=== PATIENT | male | born 1935 | race Caucasian/White ===

== ENCOUNTER 2018-03-25 17:18 | Observation (INO) | payer MEDICARE, OTHER ==
[2018-03-25 17:35] LABS: PARTIAL THROMBOPLASTIN TIME 26.7 SEC (23.5-35.8)
[2018-03-25 17:37] LABS: PROTHROMBIN TIME 14.8 SEC (11.4-15.4)
[2018-03-25 17:39] LABS: ABSOLUTE LYMPHOCYTES (AUTO) 0.6 10^3/uL (0.5-4.7); ABSOLUTE NEUT (AUTO) 0.1 10^3/uL (1.7-8.2); EOSINOPHILS % (AUTO) 1.6 % (0-6); LYMPHOCYTES % (AUTO) 82.2 % (13-45); MEAN CORPUSCULAR HEMOGLOBIN 40.7 pg (27.0-33.4); MEAN CORPUSCULAR HGB CONC 34.7 g/dL (32.0-36.0); MONOCYTES % (AUTO) 1.6 % (3-13); RED BLOOD COUNT 1.96 10^6/uL (4.35-5.55); RED CELL DISTRIBUTION WIDTH 17.3 % (11.5-14.0); SEGMENTED NEUTROPHILS % (AUTO) 14.6 % (42-78); TOTAL CELLS COUNTED % (AUTO) 100 %
[2018-03-25 17:40] LABS: MEAN CORPUSCULAR VOLUME 117 fl (80-97); PLATELET COUNT 77 10^3/uL (150-450)
--- NOTE | 2018-03-25 17:40 | RADIOLOGY REPORT (SQ) ---
EXAM DESCRIPTION: CHEST SINGLE VIEW COMPLETED DATE/TIME: 03/25/2018 5:27 pm REASON FOR STUDY: aphasia resolved COMPARISON: 02/16/2018 EXAM PARAMETERS: NUMBER OF VIEWS: One view. TECHNIQUE: Single frontal radiographic view of the chest acquired. RADIATION DOSE: NA LIMITATIONS: None. FINDINGS: LUNGS AND PLEURA: Stable scarring left lung base. No new airspace opacities, masses or pn eumothorax. No pleural effusion. MEDIASTINUM AND HILAR STRUCTURES: No masses. Contour normal. HEART AND VASCULAR STRUCTURES: Heart stable in size. Normal vasculature. BONES: No acute findings. HARDWARE: None in the chest. OTHER: No other significant finding. IMPRESSION: NO ACUTE RADIOGRAPHIC FINDING IN THE CHEST. NO SIGNIFICANT CHANGE FROM PRIOR STUDY. TECHNICAL DOCUMENTATION: JOB ID: [id number] [employer]- All Rights Reserved Reading location - IP/workstation name: [email or web address]
--- NOTE | 2018-03-25 17:42 | RADIOLOGY REPORT (SQ) ---
EXAM DESCRIPTION: CT HEAD WITHOUT COMPLETED DATE/TIME: 03/25/2018 5:31 pm REASON FOR STUDY: aphasia resolved COMPARISON: None. TECHNIQUE: Axial images acquired through the brain without intravenous contrast. Images reviewed wi th bone, brain and subdural windows. Images stored on PACS. All CT scanners at this facility use dose modulation, iterative reconstruction, and/or weight based d osing when appropriate to reduce radiation dose to as low as reasonably achievable (ALARA). [facility]: Dose Right [facility]: CareDose [facility]: Dose Right [facility]: Teradose 4D [facility]: Smart [employer] RADIATION DOSE: mGy. LIMITATIONS: None. FINDINGS: VENTRICLES: Prominent. CEREBRUM: No masses. No hemorrhage. No midline shift. Areas of low density in the white matter mos t likely due to chronic micro-vascular ischemic change. No evidence for acute infarction. CEREBELLUM: No masses. No hemorrhage. No alteration of density. No evidence for acute infarction. EXTRAAXIAL SPACES: Age-related involutional change. No fluid collections. No masses. ORBITS AND GLOBE: No intra- or extraconal masses. Normal contour of globe without masses. CALVARIUM: No fracture. PARANASAL SINUSES: No fluid or mucosal thickening. SOFT TISSUES: No mass or hematoma. OTHER: No other significant finding. IMPRESSION: CHRONIC CHANGES OF ATROPHY AND MICROVASCULAR ISCHEMIA. NO ACUTE PROCESS. EVIDENCE OF ACUTE STROKE: NO. COMMENT: Pertinent positive or negative findings of the imaging study reported as a CRITICAL EXAM higinio MELTON EBONIE at17:36 on 03/25/2018. Category of Critical Exam: CODE STROKE TECHNICAL DOCUMENTATION: JOB ID: [id number] Quality ID # [id number]: Final reports with documentation of one or more dose reduction techniques (e.g., Au tomated exposure control, adjustment of the mA and/or kV according to patient size, use of iterative reconstruction technique) 2010 [employer]- All Rights Reserved Reading location - IP/workstation name: [email or web address]
[2018-03-25 17:45] LABS: WHITE BLOOD COUNT 0.8 10^3/uL (4.0-10.5)
[2018-03-25 17:53] LABS: ALANINE AMINOTRANSFERASE 24 U/L (21-72); ALBUMIN 3.9 g/dL (3.5-5.0); ALKALINE PHOSPHATASE 60 U/L (38-126); ANION GAP 15 (5-19); ASPARTATE AMINO TRANSFERASE 15 U/L (17-59); BILIRUBIN,DIRECT 0.1 mg/dL (0.0-0.4); BILIRUBIN,TOTAL 0.4 mg/dL (0.2-1.3); BLOOD UREA NITROGEN 21 mg/dL (7-20); CALCIUM 9.3 mg/dL (8.4-10.2); CARBON DIOXIDE 25 mmol/L (22-30); CHLORIDE 104 mmol/L (98-107); CREATINE KINASE 33 U/L (55-170); GLUCOSE 118 mg/dL (75-110); POTASSIUM 4.1 mmol/L (3.6-5.0); SODIUM 143.5 mmol/L (137-145); TOTAL PROTEIN 6.6 g/dL (6.3-8.2)
[2018-03-25 18:04] LABS: CREATINE KINASE MB 0.58 ng/mL (<4.55)
[2018-03-25 18:07] LABS: ANISOCYTOSIS 1+; OVALOCYTES SLIGHT; PLATELET COMMENT DECREASED; POIKILOCYTOSIS SLIGHT
[2018-03-25 18:09] LABS: TROPONIN I 0.066 ng/mL
[2018-03-25] MEDS ORDERED: ASPIRIN 325 MG TABLET PO ONE (19:47)
--- NOTE | 2018-03-25 19:47 | ER Document Report ---
ED General - General Chief Complaint: S/S of Possible Stroke Stated Complaint: STROKE LIKE SYMPTOMS Time Seen by Provider: 03/25/18 17:24 Mode of Arrival: Medic Information source: Patient Notes: 82-year-old male presents with complaints of sudden aphasia while at home. Patient was having difficulty getting words out denies any chest pain shortness breath difficulty breathing Symptoms completely resolved prior to arrival denies any weakness numbness or confusion TRAVEL OUTSIDE OF THE [place] IN LAST 30 DAYS: No - HPI Onset: Just prior to arrival Onset/Duration: Sudden Quality of pain: No pain Severity: Mild Pain Level: Denies Associated symptoms: Other Exacerbated by: Denies Relieved by: Denies Similar symptoms previously: No Recently seen / treated by doctor: No - Related Data Allergies/Adverse Reactions: No Known Allergies Allergy (Unverified 04/18/12 09:04) Past Medical History - Social History Smoking Status: Never Smoker Cigarette use (# per day): No Chew tobacco use (# tins/day): No Smoking Education Provided: No Frequency of alcohol use: None Drug Abuse: None Family History: Reviewed & Not Pertinent Patient has suicidal ideation: No Patient has homicidal ideation: No - Past Medical History Cardiac Medical History: Denies: Hx Heart Attack, Hx Hypertension Pulmonary Medical History: Denies: Hx Asthma Neurological Medical History: Denies: Hx Cerebrovascular Accident, Hx Seizures Renal/ Medical History: Denies: Hx Peritoneal Dialysis GI Medical History: Denies: Hx Hepatitis, Hx Hiatal Hernia, Hx Ulcer Infectious Medical History: Denies: Hx Hepatitis Past Surgical History: Denies: Hx Open Heart Surgery, Hx Pacemaker Review of Systems - Review of Systems Notes: REVIEW OF SYSTEMS: CONSTITUTIONAL : Denies fever, chills, or sweats. Denies recent illness. EENT: Denies eye, ear, throat, or mouth pain or symptoms. Denies nasal or sinus congestion or discharge. Denies throat, tongue, or mouth swelling or difficulty swallowing. CARDIOVASCULAR: Denies chest pain. Denies palpitations or racing or irregular heart beat. Denies ankle edema. RESPIRATORY: Denies cough, cold, or chest congestion. Denies shortness of breath, difficulty breathing, or wheezing. GASTROINTESTINAL: Denies abdominal pain or distention. Denies nausea, vomiting , or diarrhea. Denies blood in vomitus, stools, or per rectum. Denies black, tarry stools. Denies constipation. GENITOURINARY: Denies difficulty urinating, painful urination, burning, frequency, blood in urine, or discharge. MUSCULOSKELETAL: Denies back or neck pain or stiffness. Denies joint pain or swelling. SKIN: Denies rash, lesions or sores. HEMATOLOGIC : Denies easy bruising or bleeding. LYMPHATIC: Denies swollen, enlarged glands. NEUROLOGICAL: Sudden episode of aphasia PSYCHIATRIC: Denies anxiety or stress. Denies depression, suicidal ideation, or homicidal ideation. ALL OTHER SYSTEMS REVIEWED AND NEGATIVE. Dictation was performed using [employer] voice recognition software PHYSICAL EXAMINATION: GENERAL: Well-appearing, well-nourished and in no acute distress. HEAD: Atraumatic, normocephalic. EYES: Pupils equal round and reactive to light, extraocular movements intact, sclera anicteric, conjunctiva are normal. ENT: Nares patent, oropharynx clear without exudates. Moist mucous membranes. NECK: Normal range of motion, supple without lymphadenopathy LUNGS: Breath sounds clear to auscultation bilaterally and equal. No wheezes rales or rhonchi. HEART: Regular rate and rhythm without murmurs ABDOMEN: Soft, nontender, nondistended abdomen. No guarding, no rebound. No masses appreciated. Musculoskeletal: Normal range of motion, no pitting or edema. No cyanosis. NEUROLOGICAL: Cranial nerves grossly intact. Normal speech, normal gait. Normal sensory, motor exams PSYCH: Normal mood, normal affect. SKIN: Warm, Dry, normal turgor, no rashes or lesions noted. Physical Exam - Vital signs Vitals: Pulse Resp BP Pulse Ox 61 18 165/76 H 100 03/25/18 17:24 03/25/18 17:24 03/25/18 17:24 03/25/18 17:24 Course - Re-evaluation Re-evalutation: 03/25/18 19:45 Patient has a history of myelodysplastic syndrome, currently asymptomatic CT of the head no no acute abnormality patient will be admitted for observation to rule out CVA appears to have had a TIA at this time not a candidate for thrombolytics - Vital Signs Vital signs: Temp Pulse Resp BP Pulse Ox 98.0 F 61 15 165/76 H 100 03/25/18 18:23 03/25/18 17:24 03/25/18 18:01 03/25/18 18:00 03/25/18 18:01 - Laboratory Result Diagrams: 03/25/18 17:12 03/25/18 17:12 Laboratory results interpreted by me: 03/25/18 03/25/18 17:12 17:12 WBC 0.8 L* RBC 1.96 L Hgb 8.0 L Hct 23.0 L MCV 117 H MCH 40.7 H RDW 17.3 H Plt Count 77 L Seg Neutrophils % 14.6 L Lymphocytes % 82.2 H Monocytes % 1.6 L Absolute Neutrophils 0.1 L Absolute Monocytes 0.0 L BUN 21 H Glucose 118 H AST 15 L Creatine Kinase 33 L - Diagnostic Test Radiology reviewed: Image reviewed - CT head noted no acute abnormality., Reports reviewed Discharge - Discharge Clinical Impression: Aphasia TIA (transient ischemic attack) Qualifiers: Transient cerebral ischemia type: unspecified Qualified Code(s): G45.9 - Transient cerebral ischemic attack, unspecified Condition: Stable Disposition: ADMITTED OBSERVATION Admitting Provider: Hospitalist Unit Admitted: IMCU
[2018-03-25] MEDS ORDERED: ACETAMINOPHEN 325 MG TABLET PO PRN (20:15)
--- NOTE | 2018-03-25 20:34 | PDOC H&P ---
History of Present Illness Admission Date/PCP: 03/25/18 19:58 History of Present Illness: ADAM PEREIRA is a 82 year old male patient brought by EMS for TIA. Patient has been in his usual baseline state feels up until this afternoon when he suddenly developed aphasia described as difficulty getting work this out and also incoherent speech. By the time patient arrives to ER all his symptoms spontaneously resolved. Patient denied any problems of dizziness, headache, blurring of vision, palpitation, nausea or vomiting. Patient has underlying myelodysplastic syndrome for which she has been getting intermittent injections of some kind. He has CT head which is negative for acute intracranial process. His blood work is remarkable for pancytopenia and severe leukopenia which explained by his MDS. Past Medical History Cardiac Medical History: Denies: Myocardial Infarction, Hypertension Pulmonary Medical History: Denies: Asthma Neurological Medical History: Denies: Seizures GI Medical History: Denies: Hepatitis, Hiatal Hernia Hematology: Reports: Neutropenia Denies: Anemia, Sickle Cell Disease Past Surgical History Past Surgical History: Denies: Pacemaker Social History Smoking Status: Never Smoker - Advance Directive Resuscitation Status: Full Code Family History Family History: Reviewed & Not Pertinent, Hypertension Parental Family History Reviewed: Yes Children Family History Reviewed: Yes Sibling(s) Family History Reviewed.: Yes Medication/Allergy Home Medications: Travoprost [Travatan Z] drop 03/25/18 Allergies/Adverse Reactions: No Known Allergies Allergy (Unverified 04/18/12 09:04) Review of Systems Constitutional: PRESENT: as per HPI Eyes: PRESENT: as per HPI Cardiovascular: PRESENT: as per HPI Respiratory: PRESENT: as per HPI Gastrointestinal: PRESENT: as per HPI Neurological: PRESENT: as per HPI Physical Exam Vital Signs: Temp Pulse Resp BP Pulse Ox 98.0 F 61 15 165/76 H 100 03/25/18 18:23 03/25/18 17:24 03/25/18 18:01 03/25/18 18:00 03/25/18 18:01 General appearance: PRESENT: no acute distress Head exam: PRESENT: atraumatic, normocephalic Respiratory exam: PRESENT: clear to auscultation lexx. ABSENT: rales, rhonchi, wheezes Cardiovascular exam: PRESENT: RRR. ABSENT: diastolic murmur, rubs, systolic murmur GI/Abdominal exam: PRESENT: normal bowel sounds, soft. ABSENT: distended, guarding, mass, organolmegaly, rebound, tenderness Neurological exam: PRESENT: alert, awake, oriented to time, oriented to situation, other - No neurologic deficits Results Impressions: Chest X-Ray 03/25/18 17:24 IMPRESSION: NO ACUTE RADIOGRAPHIC FINDING IN THE CHEST. NO SIGNIFICANT CHANGE FROM PRIOR STUDY. Head CT 03/25/18 17:24 IMPRESSION: CHRONIC CHANGES OF ATROPHY AND MICROVASCULAR ISCHEMIA. NO ACUTE PROCESS. EVIDENCE OF ACUTE STROKE: NO. Assessment & Plan - Diagnosis (1) TIA (transient ischemic attack) Qualifiers: Transient cerebral ischemia type: unspecified Qualified Code(s): G45.9 - Transient cerebral ischemic attack, unspecified Is this a current diagnosis for this admission?: Yes Plan: Patient admitted for observation for 24 hours. MRI of the brain in a.m. - Time Critical Time spent with patient: 15-24 minutes
[2018-03-25] MEDS ORDERED: ATORVASTATIN CALCIUM 40 MG TABLET PO SCH (22:00)
--- NOTE | 2018-03-25 22:40 | EKG REPORT ---
SEVERITY:- ABNORMAL ECG - SINUS RHYTHM FIRST DEGREE AV BLOCK LEFT ANTERIOR FASCICULAR BLOCK : Confirmed by: Joselito Watson 25-Mar-2018 19:39:50
[2018-03-26 05:59] LABS: ABSOLUTE LYMPHOCYTES (AUTO) 0.9 10^3/uL (0.5-4.7); ABSOLUTE NEUT (AUTO) 0.1 10^3/uL (1.7-8.2); EOSINOPHILS % (AUTO) 2.9 % (0-6); HEMATOCRIT 20.3 % (37.9-51.0); MEAN CORPUSCULAR HEMOGLOBIN 40.2 pg (27.0-33.4); MEAN CORPUSCULAR HGB CONC 34.4 g/dL (32.0-36.0); MEAN CORPUSCULAR VOLUME 117 fl (80-97); MONOCYTES % (AUTO) 1.3 % (3-13); RED BLOOD COUNT 1.73 10^6/uL (4.35-5.55); RED CELL DISTRIBUTION WIDTH 17.4 % (11.5-14.0); SEGMENTED NEUTROPHILS % (AUTO) 7.8 % (42-78); TOTAL CELLS COUNTED % (AUTO) 100 %
[2018-03-26 06:15] LABS: ALANINE AMINOTRANSFERASE 22 U/L (21-72); ALBUMIN 3.1 g/dL (3.5-5.0); ALKALINE PHOSPHATASE 51 U/L (38-126); ANION GAP 7 (5-19); ASPARTATE AMINO TRANSFERASE 12 U/L (17-59); BILIRUBIN,DIRECT 0.1 mg/dL (0.0-0.4); BILIRUBIN,TOTAL 0.2 mg/dL (0.2-1.3); BLOOD UREA NITROGEN 20 mg/dL (7-20); CALCIUM 8.8 mg/dL (8.4-10.2); CARBON DIOXIDE 27 mmol/L (22-30); CHLORIDE 107 mmol/L (98-107); GLUCOSE 99 mg/dL (75-110); POTASSIUM 4.2 mmol/L (3.6-5.0); SODIUM 140.6 mmol/L (137-145); TOTAL PROTEIN 5.5 g/dL (6.3-8.2)
[2018-03-26 06:17] LABS: PLATELET COUNT 67 10^3/uL (150-450)
[2018-03-26 06:24] LABS: ANISOCYTOSIS 1+; OVALOCYTES SLIGHT; PLATELET COMMENT DECREASED; POIKILOCYTOSIS SLIGHT; POLYCHROMASIA SLIGHT; SCHISTOCYTES SLIGHT; TEAR DROP CELLS SLIGHT
--- NOTE | 2018-03-26 08:31 | RADIOLOGY REPORT (SQ) ---
EXAM DESCRIPTION: MRI HEAD COMBO COMPLETED DATE/TIME: 03/25/2018 10:18 pm REASON FOR STUDY: tia D69.6 THROMBOCYTOPENIA, UNSPECIFIED COMPARISON: CT dated 03/25/2018. TECHNIQUE: Multiplanar imaging includes noncontrasted T1, T2, FLAIR, diffusion with ADC map and post gadolinium contrast T1 sequences. Images stored on PACS. CONTRAST TYPE AND DOSE: 15 mL Multihance. RENAL FUNCTION: GFR > 60. LIMITATIONS: None. FINDINGS: ANATOMY: No anomalies. Normal vascular flow voids. Pituitary fossa normal. CSF SPACES: Normal in size and contour. No hemorrhage. CEREBRUM: Sulci and gyri normal in size and contour. Normal white matter signal on FLAIR imaging. No evidence of hemorrhage, mass, or extraaxial fluid collection. No abnormal enhancement post contrast. POSTERIOR FOSSA: No signal alteration. No hemorrhage. No edema, masses, or mass effect. Internal scottie tory canals, cerebellopontine angles, mastoids normal. No enhancing lesions. No abnormal enhancement post contrast. DIFFUSION IMAGING: Negative for acute or subacute infarction. ORBITS: No masses. Globes normal. PARANASAL SINUSES: No fluid levels. Mucosa normal. OTHER: No other significant finding. IMPRESSION: NORMAL MRI OF THE BRAIN WITHOUT AND WITH INTRAVENOUS GADOLINIUM CONTRAST. EVIDENCE OF ACUTE STROKE: NO. TECHNICAL DOCUMENTATION: JOB ID: [id number] [employer]- All Rights Reserved Reading location - IP/workstation name: [email or web address]
[2018-03-26] MEDS ORDERED: ASPIRIN 81 MG TABLET, ENT COATED PO SCH (10:00)
--- NOTE | 2018-03-26 15:47 | RADIOLOGY REPORT (SQ) ---
EXAM DESCRIPTION: CAROTID DOPPLER COMPLETED DATE/TIME: 03/26/2018 3:39 pm REASON FOR STUDY: TIA D69.6 THROMBOCYTOPENIA, UNSPECIFIED G45.9 TRANSIENT CEREBRAL ISCHEMIC ATTACK , UNSPECIFIED COMPARISON: None. TECHNIQUE: Grayscale ultrasound, Doppler velocity and spectra, and color Doppler images acquired of the extra-cranial carotid and vertebral arteries. Images stored on PACS. LIMITATIONS: None. FINDINGS: RIGHT CAROTID CCA Velocities: Within normal limits. ICA Velocities Peak systolic 1.04 m/s. End diastolic 0.3 m/s. Proximal ICA/CCA peak systolic ratio 1.04. Spectra normal. No significant plaque. LEFT CAROTID CCA Velocities: Within normal limits. ICA Velocities Peak systolic 0.76 m/s. End diastolic 0.27 m/s. Proximal ICA/CCA peak systolic ratio 0.8. Spectra normal. No significant plaque. VERTEBRAL ARTERIES: Antegrade flow. Normal waveforms. SUBCLAVIAN ARTERIES: No finding. OTHER: No other significant finding. IMPRESSION: NO HEMODYNAMICALLY SIGNIFICANT STENOSIS. COMMENT: Quality ID #[id number]: Velocity criteria are extrapolated from the diameter data as defined by t he Society of Radiologists in Ultrasound Consensus Conference. Radiology 2003: 229; 340-346. TECHNICAL DOCUMENTATION: JOB ID: [id number] [employer]- All Rights Reserved Reading location - IP/workstation name: [email or web address]
--- NOTE | 2018-03-26 16:00 | XCELERA REPORT ---
[address] [address] Transthoracic Echocardiogram Report Name: ADAM PEREIRA Age: 82 yrs Gender: Male : 1935 Patient Status: Inpatient Patient Location: [address] [place], [place] [address] Study Date: 03/26/2018 01:17 PM Height: 71 in Weight: 159 lb BSA: 1.9 m2 Procedure: A two-dimensional transthoracic echocardiogram with color flow Doppler was performed. The study was technically difficult with many images being suboptimal in quality. Reason For Study: TIA History: TIA. Ordering Physician: DAVID SEAMAN Performed By: Eladio Simmons Interpretation Summary There is no obvious cardiac source of embolus noted on this transthoracic echocardiogram. Follow-up with a JANAK is suggested if cardiac source is still suspected. The left ventricle is normal in size. There is normal left ventricular wall thickness. LV EF is > than 65% Left ventricular systolic function is normal. Doppler measurements suggest impaired left ventricular relaxation, which is associated with grade I/IV or mild diastolic dysfunction The left ventricular wall motion is normal. The left atrial size is normal. There is no evidence of mitral valve prolapse. There is no mitral valve stenosis. There is no mitral regurgitation noted. There is no aortic valvular vegetation. There is no aortic valve stenosis There is no LVOT obstruction. There is a mild amount of aortic regurgitation There is no tricuspid stenosis. There is a mild amount of tricuspid regurgitation There is mild pulmonary hypertension by echo RVSP is 44 mm of Hg , with RA mean of 5. No doppler across PV.Hence cannot comment on Pulmonic Stenosis. There is no pericardial effusion. There is no obvious cardiac source of embolus noted on this transthoracic echocardiogram. Follow-up with a JANAK is suggested if cardiac source is still suspected MMode/2D Measurements & Calculations RVDd: 3.5 cm LVIDd: 5.3 cm FS: 39.1 % Ao root diam: 3.9 cm IVSd: 0.99 cm LVIDs: 3.2 cm EDV(Teich): 134.8 ml LVPWd: 1.1 cm ESV(Teich): 41.7 ml Ao root area: 11.8 cm2 EF(Teich): 69.1 % LA dimension: 2.4 cm Doppler Measurements & Calculations MV E max gauri: MV P1/2t max gauri: Ao V2 max: AI max gauri: 82.4 cm/sec 92.3 cm/sec 171.6 cm/sec 418.1 cm/sec MV A max gauri: MV P1/2t: 75.7 msec Ao max PG: AI max P.3 cm/sec 11.8 mmHg 69.9 mmHg MV E/A: 0.87 MVA(P1/2t): 2.9 cm2 AI dec slope: MV dec slope: 357.0 cm/sec2 244.4 cm/sec2 MV dec time: AI P1/2t: 0.28 sec 501.0 msec LV V1 max PG: PA V2 max: TR max gauri: 8.8 mmHg 92.8 cm/sec 309.2 cm/sec LV V1 max: PA max P.4 mmHg TR max P.1 cm/sec 38.2 mmHg Left Ventricle The left ventricle is normal in size. There is normal left ventricular wall thickness. LV EF is > than 65%. Left ventricular systolic function is normal. Doppler measurements suggest impaired left ventricular relaxation, which is associated with grade I/IV or mild diastolic dysfunction. The left ventricular wall motion is normal. There is no thrombus. There is no ventricular septal defect visualized. Right Ventricle The right ventricle is not well visualized secondary to technical limitations. Atria The right atrium is normal. The left atrial size is normal. The interatrial septum is intact with no evidence for an atrial septal defect. Mitral Valve There is no evidence of mitral valve prolapse. There is no vegetation seen on the mitral valve. There is no mitral valve stenosis. There is no mitral regurgitation noted. Aortic Valve There is no aortic valvular vegetation. There is no aortic valve stenosis. There is no LVOT obstruction. There is a mild amount of aortic regurgitation. Tricuspid Valve There is no tricuspid stenosis. There is a mild amount of tricuspid regurgitation. There is mild pulmonary hypertension by echo. RVSP is 44 mm of Hg , with RA mean of 5. Pulmonic Valve There is no pulmonic valvular regurgitation. No doppler across PV.Hence cannot comment on Pulmonic Stenosis. Great Vessels The aortic root is mildly dilated. Effusions There is no pericardial effusion. : DAVID SEAMAN > Mirtha Thornton
[2018-03-26 19:40] VITALS: BP 113/52
[2018-03-28 13:22] LABS: PATH REVIEW PATHOLOGIST REVIEWED
--- NOTE | 2018-03-29 12:59 | PDOC DISCHARGE SUMMARY ---
General - Admit/Disc Date/PCP Admission Date/Primary Care Provider: 03/25/18 19:58 Discharge Date: 03/26/18 - Discharge Diagnosis (1) TIA (transient ischemic attack) Is this a current diagnosis for this admission?: Yes (2) HLD (hyperlipidemia) Is this a current diagnosis for this admission?: Yes - Additional Information Resuscitation Status: Full Code Discharge Diet: As Tolerated Discharge Activity: Activity As Tolerated Prescriptions: Atorvastatin Calcium [Lipitor 40 mg Tablet] 40 mg PO QHS #30 tablet Home Medications: Ascorbic Acid [Vitamin C 500 mg Tablet] 500 mg PO DAILY 03/25/18 Cholecalciferol (Vitamin D3) [Vitamin D3 1000 Unit Tablet] 1,000 unit PO DAILY 03/25/18 Magnesium Oxide [Mag-Ox 400 mg Tablet] 400 mg PO DAILY 03/25/18 Travoprost [Travatan Z] 1 drop OU QHS 03/25/18 Ubidecarenone/Vit E Acet [Co Q-10 100 mg Softgel] 1 each PO DAILY 03/25/18 Atorvastatin Calcium [Lipitor 40 mg Tablet] 40 mg PO QHS #30 tablet 03/26/18 History of Present Illness History of Present Illness: ADAM PEREIRA is a 82 year old male patient brought by EMS for TIA. Patient has been in his usual baseline state feels up until this afternoon when he suddenly developed aphasia described as difficulty getting work this out and also incoherent speech. By the time patient arrives to ER all his symptoms spontaneously resolved. Patient denied any problems of dizziness, headache, blurring of vision, palpitation, nausea or vomiting. Patient has underlying myelodysplastic syndrome for which she has been getting intermittent injections of some kind. He has CT head which is negative for acute intracranial process. His blood work is remarkable for pancytopenia and severe leukopenia which explained by his MDS. Hospital Course Hospital Course: 82-year-old male admitted to the hospitalist service for TIA workup. The reports she called EMS because the patient became acutely confused and was having difficulty following commands. Upon EMS arrival to their home, the patient failed the prehospital stroke evaluation. Upon arrival to the emergency department, his symptoms resolved. Head CT was negative. EKG showed NSR with first-degree AV block, no evidence of acute infarction or ischemia. Troponin< 0.012. MRI brain was normal, only demonstrating age-related vascular changes. Carotid Doppler was normal, no evidence of stenosis or blockage. Echocardiogram was normal, LVEF >65%, no valvular disease. The patient's lab work demonstrated pancytopenia, secondary to his MDS. A Vitamin B12 level was checked to determine if a deficiency could help explain his symptoms, but the results were normal. Ultimately, the patient was discharged home with an increased dose of his atorvastatin secondary prevention of stroke/TIA, instructions on lifestyle modifications, and a follow-up appointment with his primary care doctor. Physical Exam Vital Signs: Temp Pulse Resp BP Pulse Ox 98.1 F 77 14 113/52 L 98 03/26/18 19:39 03/26/18 19:39 03/26/18 19:39 03/26/18 19:39 03/26/18 19:39 Results Laboratory Results: 03/26/18 04:41 03/26/18 04:41 Impressions: Chest X-Ray 03/25/18 17:24 IMPRESSION: NO ACUTE RADIOGRAPHIC FINDING IN THE CHEST. NO SIGNIFICANT CHANGE FROM PRIOR STUDY. Head CT 03/25/18 17:24 IMPRESSION: CHRONIC CHANGES OF ATROPHY AND MICROVASCULAR ISCHEMIA. NO ACUTE PROCESS. EVIDENCE OF ACUTE STROKE: NO. Head MRI 03/25/18 20:20 IMPRESSION: NORMAL MRI OF THE BRAIN WITHOUT AND WITH INTRAVENOUS GADOLINIUM CONTRAST. EVIDENCE OF ACUTE STROKE: NO. Carotid Doppler Study 03/26/18 00:00 IMPRESSION: NO HEMODYNAMICALLY SIGNIFICANT STENOSIS. Status: Imported from PACS Qualifiers - * PATIENT BEING DISCHARGED WITH ANY OF THE FOLLOWING DIAGNOSIS: No
== END 2018-03-26 19:52 | disposition home or self-care (01) ==
LOC: ER 17:18 → EH 19:58 → 3N 03-26 00:22
PROVIDERS: ADMIT Internal Medicine; ATTEND Internal Medicine
DX: G45.9 Transient cerebral ischemic attack, unspecified (principal); E78.5 Hyperlipidemia, unspecified; D46.9 Myelodysplastic syndrome, unspecified; I44.0 Atrioventricular block, first degree; Z79.899 Other long term (current) drug therapy; Z82.49 Family history of ischemic heart disease and other diseases of the circulatory system
CPT/HCPCS: 93005; 99285; 36415 ×2; 82553; 82607; 82550; 85025 ×2; 85610; 85730; 80053 ×2; 84484; 93306; 93880; 70553; 71045; 70450; 93010; A9270 ×2; J3490; G0378